=== PATIENT | male | born 1970 | race Caucasian/White ===

== ENCOUNTER 2017-05-25 13:39 | Inpatient (IN) | payer OTHER ==
[~2017-05-25] VITALS: Ht 180.3 cm; Wt 96.0 kg
[2017-06-07 13:30] VITALS: BP 140/88
[2017-06-07] MEDS ORDERED: LEXAPRO5 MG ORAL (15:06)
[2017-06-07] MEDS ORDERED: CRESTOR10 M1 ORAL (15:06)
[2017-06-07] MEDS ORDERED: ODEFSEY TABLET1 EACH PO (15:06)
[2017-06-07] MEDS ORDERED: PHENTERMINE H37.5 M1 PO (15:06)
[2017-06-07 16:42] LABS: BASOPHILS % (AUTO) 0.8 % (0.0-2.0); EOSINOPHILS % (AUTO) 1.6 % (0.0-3.0); HEMATOCRIT 45.4 % (42.0-52.0); HEMOGLOBIN 16.3 G/DL (14.2-18.0); LYMPHOCYTES % (AUTO) 28.1 % (20.0-45.0); MEAN CORPUSCULAR VOLUME 93 FL (80-99); MONOCYTES % (AUTO) 8.7 % (1.0-10.0); NEUTROPHILS % (AUTO) 60.8 % (45.0-75.0); PLATELET COUNT 248 K/UL (150-450); RED BLOOD COUNT 4.87 M/UL (4.70-6.10); RED CELL DISTRIBUTION WIDTH 11.2 % (11.6-14.8); WHITE BLOOD COUNT 6.5 K/UL (4.8-10.8)
--- NOTE | 2017-06-07 17:44 | History and Physical ---
History of Present Illness General Date patient seen: Jun 07, 2017 Time patient seen: 14:30 Reason for Hospitalization: particpation in [id number] clinical trial Present Illness HPI 46 yo male in good health with well-controlled HIV infection is electively admitted for above clinical trial. He has no complaints at the moment. Allergies: Coded Allergies: PENICILLIN G (Verified Allergy, Mild, rash, 06/07/17) Medication History Scheduled Escitalopram Oxalate (Lexapro), 15 MG ORAL DAILY, (Reported) Rosuvastatin Calcium (Crestor), 5 MG ORAL DAILY, (Reported) Miscellaneous Medications Emtricitab/Rilpiviri/Tenof Ala (Odefsey Tablet), 1 EACH PO, (Reported) Phentermine Hcl (Phentermine Hcl), 37.5 MG PO, (Reported) Patient History History Provided By: Patient Healthcare decision maker Self Resuscitation status Full Code Advanced Directive on File No Patient History Narrative Patient diagnosed with HIV in 1991, started therapy c. 1996; has never had virologic failure. He has no history of OIs or KS. He has had some lipodystrophy. He has hyperlipidemia and was diagnosed with fatty liver in 2011 , and has a long history of depression. He has not had surgery and his family history is non-contributory Review of Systems Constitutional: Reports: no symptoms Respiratory: Denies: cough, shortness of breath Cardiovascular: Denies: chest pain Gastrointestinal: Denies: diarrhea, nausea, vomiting Genitourinary: Denies: dysuria All Other Systems: negative except mentioned in HPI Physical Exam General Appearance: WD/WN, no apparent distress HEENT: normocephalic, atraumatic Neck: supple Respiratory/Chest: lungs clear Cardiovascular/Chest: normal rate, regular rhythm Abdomen: non tender, soft, no organomegaly Extremities: no edema Neurologic: vendor analyst II-XII grossly normal, responsive, normal mood/affect Laboratory Tests Test 06/07/17 13:15 White Blood Count 6.5 K/UL (4.8-10.8) Red Blood Count 4.87 M/UL (4.70-6.10) Hemoglobin 16.3 G/DL (14.2-18.0) Hematocrit 45.4 % (42.0-52.0) Mean Corpuscular Volume 93 FL (80-99) Mean Corpuscular Hemoglobin 33.5 PG (27.0-31.0) H Mean Corpuscular Hemoglobin Concent 35.9 G/DL (32.0-36.0) Red Cell Distribution Width 11.2 % (11.6-14.8) L Platelet Count 248 K/UL (150-450) Mean Platelet Volume 5.9 FL (6.5-10.1) L Neutrophils (%) (Auto) 60.8 % (45.0-75.0) Lymphocytes (%) (Auto) 28.1 % (20.0-45.0) Monocytes (%) (Auto) 8.7 % (1.0-10.0) Eosinophils (%) (Auto) 1.6 % (0.0-3.0) Basophils (%) (Auto) 0.8 % (0.0-2.0) Height (Feet): 5 Height (Inches): 11.00 Weight (Pounds): 200 Medications Current Medications Medications (Trade) Dose Ordered Sig/Danny Route PRN Reason Start Time Stop Time Status Last Admin Dose Admin Patient Own Medication (Patient's Own Med) 1 ea DAILY ORAL 06/08/17 12:00 07/08/17 11:59 UNV Patient Own Medication (Patient's Own Med) 1 ea DAILY ORAL 06/08/17 12:00 07/08/17 11:59 UNV Patient Own Medication (Patient's Own Med) 1 ea DAILY ORAL 06/08/17 12:00 07/08/17 11:59 UNV Patient Own Medication (Patient's Own Med) 1.5 ea DAILY ORAL 06/08/17 12:00 07/08/17 11:59 UNV Assessment/Plan Status: stable Assessment/Plan A: Admission for participation in [id number] trial HIV, well controlled hyperlipidemia, on medication depression, currently stable P: Pt has given informed consent to his participation in this phase Ib trial. All questions offered were addressed. We will proceed per protocol. Dictated #[id number] RAHEEL COTA Jun 07, 2017 17:44
--- NOTE | 2017-06-08 01:00 | History and Physical Report ---
DATE OF ADMISSION: 06/07/2017 REASON FOR ADMISSION: The patient is admitted for participation in clinical trial of [place] [id number]. HISTORY OF PRESENT ILLNESS: The patient is a 46-year-old man followed by my associate, Dr. Jeff Guajardo, for routine outpatient care and the patient has history of HIV infection, which was diagnosed in 1991. He was started on ant-retroviral therapy in 1998 and has been on a variety of antiretroviral therapies, most recently on Odefsey. The patient has never changed regimens due to drug failure, but has switched for tolerability and convenience reasons. He has been on Odefsey for many months with excellent virologic control. He is admitted at this time to participate in the above clinical trial. PAST MEDICAL HISTORY: The patient has generally been healthy his whole life. He has diagnosis of depression with a suicide attempt in high school. He has hyperlipidemia, mild obesity, presumably HIV-related lipodystrophy, and also has history of ASCUS on Pap smears. There is diagnosis of fatty liver in 2011. PAST SURGICAL HISTORY: He denies prior surgery. MEDICATIONS: As an outpatient included Odefsey one tablet daily, phentermine 30 mg one daily, Lexapro 20 mg one daily, and Crestor 5 mg one daily. FAMILY HISTORY: His mother has unspecified arrhythmia. SOCIAL HISTORY: The patient does not smoke and drinks very rarely. There is no history of recreational drug use. There is no current recreational drug use. No recent travel. The patient has a partner who lives in [place]. There is no recent travel out of our community hospital. REVIEW OF SYSTEMS: He denies cough, shortness of breath. Denies fevers. Denies chest pain. Denies nausea, vomiting, or diarrhea. He has not had dysuria. PHYSICAL EXAMINATION: GENERAL: Revealed a well-nourished, well-developed male, in no acute distress. He is alert and oriented x4. VITAL SIGNS: His pulse was 76, his blood pressure was 128/85, his temperature was 98.0 degrees. His weight was 211.4 pounds. His height was 71 inches. HEENT: Normocephalic and atraumatic. Pupils equal, round, and reactive. Oropharynx is without thrush. NECK: Supple. No cervical or axillary adenopathy. LUNGS: Clear to auscultation. HEART: Regular rhythm without murmurs or gallops. ABDOMEN: Soft and nontender. There is no hepatosplenomegaly. EXTREMITIES: Without cyanosis, clubbing, or edema. NEUROLOGIC: Grossly nonfocal. No motor or sensory deficit. LABORATORY DATA: Pending. IMPRESSION: 1. Admission for participation in clinical study, [id number]. 2. HIV infection, well controlled. 3. Hypercholesterolemia. 4. Lipodystrophy. 5. Mild depression. DISCUSSION: The patient is a very pleasant 46-year-old man admitted for participation in clinical trial of a new anti-HIV agent sponsored by [employer]. This is a phase Ib clinical study. We reviewed the risks and benefits with the patient in detail and the patient wishes to proceed with the study. PLAN: 1. Followup per protocol. 2. We will plan on dosing in the morning and then the patient will spend the following 2 nights in the hospital under observation. Jeff Kearney M.D. DR: DIMAS JOB#: [id number] CC: Jeff Kearney M.D.; [address] [place] [address], [address]; [place] [address].; Fax#: [phone] [facility]
[2017-06-08] MEDS ORDERED: Investigational Drug 150 MG in NS 48 ML IV SCH (06:30)
[2017-06-08 12:00] VITALS: BP 125/76
[2017-06-08] MEDS: ROSUVASTATIN 5 MG ORAL SCH (12:07)
[2017-06-08] MEDS: PHENTERMINE 37.5 MG ORAL SCH (12:07)
[2017-06-08 15:42] VITALS: BP 111/74
--- NOTE | 2017-06-08 20:42 | General Progress Note ---
Assessment/Plan Status: stable Status Narrative Pt has tolerated administration of investigational agent (or placebo) well. Assessment/Plan A: HIV infection, stable Other medical problems stable P: Continue to observe as per [id number] protocol. Subjective Date patient seen: Jun 07, 2017 Time patient seen: 15:00 Constitutional: Reports: no symptoms HEENT: Reports: no symptoms Cardiovascular: Denies: chest pain, edema, lightheadedness Respiratory: Denies: cough, shortness of breath Gastrointestinal/Abdominal: Denies: diarrhea, nausea, vomiting Genitourinary: Denies: burning, frequency, hematuria Neurologic/Psychiatric: Denies: headache, paresthesia Endocrine: Reports: no symptoms Hematologic/Lymphatic: Reports: no symptoms Allergies: Coded Allergies: PENICILLIN G (Verified Allergy, Mild, rash, 06/07/17) All Systems: reviewed and negative except above Subjective Study drug was administered to patient c. 0630 without incident. I was present during this, and I saw him again this afternoon. He is doing well and has no complaints. Objective Labs Test 06/07/17 13:15 White Blood Count 6.5 K/UL (4.8-10.8) Red Blood Count 4.87 M/UL (4.70-6.10) Hemoglobin 16.3 G/DL (14.2-18.0) Hematocrit 45.4 % (42.0-52.0) Mean Corpuscular Volume 93 FL (80-99) Mean Corpuscular Hemoglobin 33.5 PG (27.0-31.0) Mean Corpuscular Hemoglobin Concent 35.9 G/DL (32.0-36.0) Red Cell Distribution Width 11.2 % (11.6-14.8) Platelet Count 248 K/UL (150-450) Mean Platelet Volume 5.9 FL (6.5-10.1) Neutrophils (%) (Auto) 60.8 % (45.0-75.0) Lymphocytes (%) (Auto) 28.1 % (20.0-45.0) Monocytes (%) (Auto) 8.7 % (1.0-10.0) Eosinophils (%) (Auto) 1.6 % (0.0-3.0) Basophils (%) (Auto) 0.8 % (0.0-2.0) Last 24 Hour Vital Signs Date Time Temp Pulse Resp B/P (MAP) Pulse Ox O2 Delivery O2 Flow Rate FiO2 06/08/17 15:42 97.7 72 20 111/74 94 97.7 06/08/17 12:00 97.5 73 20 125/76 99 97.5 Intake and Output 06/07/17 06/08/17 19:00 07:00 Intake Total 500 ml 480 ml Balance 500 ml 480 ml Intake Oral 500 ml 480 ml # Voids 1 1 Labs Test 06/07/17 13:15 White Blood Count 6.5 K/UL (4.8-10.8) Red Blood Count 4.87 M/UL (4.70-6.10) Hemoglobin 16.3 G/DL (14.2-18.0) Hematocrit 45.4 % (42.0-52.0) Mean Corpuscular Volume 93 FL (80-99) Mean Corpuscular Hemoglobin 33.5 PG (27.0-31.0) Mean Corpuscular Hemoglobin Concent 35.9 G/DL (32.0-36.0) Red Cell Distribution Width 11.2 % (11.6-14.8) Platelet Count 248 K/UL (150-450) Mean Platelet Volume 5.9 FL (6.5-10.1) Neutrophils (%) (Auto) 60.8 % (45.0-75.0) Lymphocytes (%) (Auto) 28.1 % (20.0-45.0) Monocytes (%) (Auto) 8.7 % (1.0-10.0) Eosinophils (%) (Auto) 1.6 % (0.0-3.0) Basophils (%) (Auto) 0.8 % (0.0-2.0) Height (Feet): 5 Height (Inches): 11.00 Weight (Pounds): 200 General Appearance: WD/WN, no apparent distress Neck: supple Cardiovascular: normal rate, regular rhythm Respiratory/Chest: lungs clear Abdomen: non tender, soft Edema: no edema noted Arm (L), no edema noted Arm (R), no edema noted Leg (L), no edema noted Leg (R), no edema noted Pedal (L), no edema noted Pedal (R), no edema noted Generalized Neurologic: no motor/sensory deficits Skin: rash - none RAHEEL COTA Jun 08, 2017 20:42
[2017-06-09 00:30] VITALS: BP 126/88
[2017-06-09 07:36] LABS: BASOPHILS % (AUTO) 0.6 % (0.0-2.0); EOSINOPHILS % (AUTO) 1.8 % (0.0-3.0); HEMATOCRIT 39.9 % (42.0-52.0); HEMOGLOBIN 14.5 G/DL (14.2-18.0); LYMPHOCYTES % (AUTO) 29.3 % (20.0-45.0); MEAN CORPUSCULAR VOLUME 91 FL (80-99); MONOCYTES % (AUTO) 8.8 % (1.0-10.0); NEUTROPHILS % (AUTO) 59.6 % (45.0-75.0); PLATELET COUNT 225 K/UL (150-450); RED BLOOD COUNT 4.38 M/UL (4.70-6.10); RED CELL DISTRIBUTION WIDTH 10.5 % (11.6-14.8); WHITE BLOOD COUNT 6.6 K/UL (4.8-10.8)
[2017-06-09 08:00] VITALS: BP 128/81
[2017-06-09] MEDS: PHENTERMINE 37.5 MG ORAL SCH (11:56)
[2017-06-09] MEDS: ROSUVASTATIN 5 MG ORAL SCH (11:56)
[2017-06-09 12:00] VITALS: BP 129/87
--- NOTE | 2017-06-09 15:48 | General Progress Note ---
Assessment/Plan Status: stable Status Narrative Patient continues in good condition. Labs Test 06/07/17 13:15 06/09/17 06:36 White Blood Count 6.5 K/UL (4.8-10.8) 6.6 K/UL (4.8-10.8) Red Blood Count 4.87 M/UL (4.70-6.10) 4.38 M/UL (4.70-6.10) Hemoglobin 16.3 G/DL (14.2-18.0) 14.5 G/DL (14.2-18.0) Hematocrit 45.4 % (42.0-52.0) 39.9 % (42.0-52.0) Mean Corpuscular Volume 93 FL (80-99) 91 FL (80-99) Mean Corpuscular Hemoglobin 33.5 PG (27.0-31.0) 33.1 PG (27.0-31.0) Mean Corpuscular Hemoglobin Concent 35.9 G/DL (32.0-36.0) 36.3 G/DL (32.0-36.0) Red Cell Distribution Width 11.2 % (11.6-14.8) 10.5 % (11.6-14.8) Platelet Count 248 K/UL (150-450) 225 K/UL (150-450) Mean Platelet Volume 5.9 FL (6.5-10.1) 6.6 FL (6.5-10.1) Neutrophils (%) (Auto) 60.8 % (45.0-75.0) 59.6 % (45.0-75.0) Lymphocytes (%) (Auto) 28.1 % (20.0-45.0) 29.3 % (20.0-45.0) Monocytes (%) (Auto) 8.7 % (1.0-10.0) 8.8 % (1.0-10.0) Eosinophils (%) (Auto) 1.6 % (0.0-3.0) 1.8 % (0.0-3.0) Basophils (%) (Auto) 0.8 % (0.0-2.0) 0.6 % (0.0-2.0) Assessment/Plan A: HIV infection, stable Other medical problems are stable P: Continue to observe as per [id number] protocol. We will expect discharge in the morning. Subjective Date patient seen: Jun 09, 2017 Time patient seen: 12:00 Constitutional: Denies: chills, fever, malaise Cardiovascular: Denies: chest pain, edema, lightheadedness, palpitations Respiratory: Denies: cough, shortness of breath, wheezing Gastrointestinal/Abdominal: Denies: abdominal pain, diarrhea, nausea, vomiting Genitourinary: Denies: burning, frequency Neurologic/Psychiatric: Reports: no symptoms Endocrine: Reports: no symptoms Allergies: Coded Allergies: PENICILLIN G (Verified Allergy, Mild, rash, 06/07/17) All Systems: reviewed and negative except above Subjective Patient is doing well today, has no new complaints. Objective Last 24 Hour Vital Signs Date Time Temp Pulse Resp B/P (MAP) Pulse Ox O2 Delivery O2 Flow Rate FiO2 06/09/17 12:00 97.3 71 20 129/87 95 97.3 06/09/17 08:00 97.2 81 18 128/81 95 97.2 06/09/17 00:30 97.5 79 20 126/88 96 Room Air 97.5 Intake and Output 06/08/17 06/09/17 19:00 07:00 Intake Total 660 ml 500 ml Balance 660 ml 500 ml Intake Oral 660 ml 500 ml # Voids 1 2 Laboratory Tests 06/09/17 06:36: White Blood Count 6.6, Red Blood Count 4.38L, Hemoglobin 14.5, Hematocrit 39.9L , Mean Corpuscular Volume 91, Mean Corpuscular Hemoglobin 33.1H, Mean Corpuscular Hemoglobin Concent 36.3H, Red Cell Distribution Width 10.5L, Platelet Count 225, Mean Platelet Volume 6.6, Neutrophils (%) (Auto) 59.6, Lymphocytes (%) (Auto) 29.3, Monocytes (%) (Auto) 8.8, Eosinophils (%) (Auto) 1.8, Basophils (%) (Auto) 0.6 Height (Feet): 5 Height (Inches): 11.00 Weight (Pounds): 211 General Appearance: WD/WN, no apparent distress EENT: PERRL/EOMI, pharynx normal Neck: supple Cardiovascular: normal rate, regular rhythm Respiratory/Chest: lungs clear Abdomen: non tender, soft Edema: no edema noted Arm (L), no edema noted Arm (R), no edema noted Leg (L), no edema noted Leg (R), no edema noted Pedal (L), no edema noted Pedal (R), no edema noted Generalized Neurologic: no motor/sensory deficits RAHEEL COTA Jun 09, 2017 15:48
[2017-06-09 16:00] VITALS: BP 124/83
[2017-06-09 20:00] VITALS: BP 143/90
[2017-06-10 07:39] LABS: BASOPHILS % (AUTO) 0.8 % (0.0-2.0); EOSINOPHILS % (AUTO) 2.1 % (0.0-3.0); HEMATOCRIT 43.1 % (42.0-52.0); HEMOGLOBIN 15.2 G/DL (14.2-18.0); LYMPHOCYTES % (AUTO) 35.1 % (20.0-45.0); MEAN CORPUSCULAR VOLUME 93 FL (80-99); PLATELET COUNT 223 K/UL (150-450); RED BLOOD COUNT 4.63 M/UL (4.70-6.10); RED CELL DISTRIBUTION WIDTH 11.4 % (11.6-14.8); WHITE BLOOD COUNT 6.8 K/UL (4.8-10.8)
[2017-06-10] MEDS ORDERED: Patient's Own Med ORAL (07:51)
[2017-06-10 08:00] VITALS: BP 121/75
--- NOTE | 2017-06-10 08:11 | Discharge Summary ---
Discharge Summary Hospital Course Date of Admission Jun 07, 2017 at 14:00 Date of Discharge Jun 10, 2017 at 08:30 Admitting Diagnosis 1) Participation in clinical trial 2) HIV infection 3) hyperlipidemia 4) lipodystrophy 5) mild depression Reason for Hospitalization: Participation in [id number] HPI Jordan Bradford is a 46 year old male who was admitted on Jun 07, 2017 at 14:00 for Infection Consultations None. Procedures None. Hospital Course Pt tolerated infusion of study drug without any adverse events noted. Discharge Medications New Medications: [Patient's Own Med] () 1 EA EA 1.5 EA ORAL DAILY@1200 [Patient's Own Med] () 1 EA EA 1 EA ORAL DAILY@1200 [Patient's Own Med] () 1 EA EA 1 EA ORAL DAILY@1200 [Patient's Own Med] () 1 EA EA 1 EA ORAL DAILY@1200 Discharge Condition Upon Discharge: stable Discharge Disposition Patient was discharged to Home (01) Discharge Diagnoses: (1) Research study patient RAHEEL COTA Jun 10, 2017 08:11
--- NOTE | 2017-06-11 05:30 | Discharge Summary ---
DATE OF ADMISSION: 06/07/2017 DATE OF DISCHARGE: 06/10/2017 DISCHARGE DIAGNOSES: 1. Participation in clinical trial. 2. Human immunodeficiency virus infection, well controlled. 3. Hypercholesterolemia. 4. Lipodystrophy. 5. Mild depression. HISTORY OF PRESENT ILLNESS AND HOSPITAL COURSE: The patient was electively admitted on 06/07/2017 for participation in [employer] clinical trial [id number]. The patient was given an infusion of the experimental agent (or placebo) on the second hospital day. This was as per the protocol. The patient tolerated this well. There were no adverse events noted. DISCHARGE MEDICATIONS: Phentermine 30 mg daily, Lexapro 20 mg daily, Crestor 5 mg daily, and Odefsey 1 tablet daily. DISCHARGE CONDITION: Good. The patient's discharge disposition was to home with followup in the clinic. Jeff Kearney M.D. DR: DIMAS JOB#: [id number] CC: OMAR
== END 2017-06-10 08:23 | disposition home or self-care (01) | DRG 951 ==
LOC: 3E 06-07 14:00
DX: Z00.6 Encounter for examination for normal comparison and control in clinical research program (principal); B20 Human immunodeficiency virus [HIV] disease; E78.5 Hyperlipidemia, unspecified; E88.1 Lipodystrophy, not elsewhere classified; F32.9 Major depressive disorder, single episode, unspecified; Z88.0 Allergy status to penicillin
CPT/HCPCS: 36415; 85025

== ENCOUNTER 2018-06-15 10:24 | Day surgery (SDC) | payer BC ==
[~2018-06-15] VITALS: Ht 177.8 cm; Wt 90.7 kg
[2018-06-15] VITALS (9 sets, daily range): BP systolic 79–129; BP diastolic 74–84
[~2018-06-15 10:24] MED LIST: CRESTOR10 M1 ORAL; LEXAPRO5 MG ORAL; LR 1000ml 1,000 ML IVLG SCH; ODEFSEY TABLET1 EACH PO; PHENTERMINE H37.5 M1 PO; Patient's Own Med ORAL
--- NOTE | 2018-06-15 10:50 | NUR ---
IV LR WAS STARTED BY DESIREE RAMON RN. NO S/S OF INFILTRATION.
[2018-06-15] MEDS ORDERED: LR 1000ml 1,000 ML IVLG SCH (12:34)
--- NOTE | 2018-06-15 12:34 | Anethesia Preoperative Eval ---
Anesthesia Pre-op PMH/ROS General Date of Evaluation: June 15, 2018 Anesthesiologist: Karthik ASA Score: ASA 2 Mallampati Score Class I : Soft palate, uvula, fauces, pillars visible Class II: Soft palate, uvula, fauces visible Class III: Soft palate, base of uvula visible Class IV: Only hard plate visible Mallampati Classification: Class III Surgeon: Isma Diagnosis: Screening Surgical Procedure: Colonoscopy Anesthesia History: none Family History: no anesthesia problems Allergies: Coded Allergies: PENICILLIN G (Verified Allergy, Intermediate, rash, 06/15/18) Medications: see eMAR Patient NPO?: Yes NPO Date: June 15, 2018 NPO Time: 00:00 Past Medical History Cardiovascular: Reports: other - HLD; Denies: HTN, CAD, CA, valve dz, arrhythmia Pulmonary: Denies: asthma, COPD, BUNNY, other Gastrointestinal/Genitourinary: Denies: GERD, CRI, ESRD, other Neurologic/Psychiatric: Reports: depression/anxiety; Denies: dementia, CVA, TIA, other Endocrine: Denies: DM, hypothyroidism, steroids, other HEENT: Denies: cataract (L), cataract (R), glaucoma, COWLITZ (L), COWLITZ (R), other Hematology/Immune: Reports: anemia - chronic, other - HIV; Denies: DVT, bleeding disorder Musculoskeletal/Integumentary: Denies: OA, RA, DJD, DDD, edema, other PSxH Narrative: Lasik Anesthesia Pre-op Phys. Exam Physician Exam Last Vital Signs Date Time Temp Pulse Resp B/P (MAP) Pulse Ox O2 Delivery O2 Flow Rate FiO2 06/15/18 11:03 Room Air 06/15/18 10:57 96.9 59 20 129/84 97 Constitutional: NAD Cardiovascular: RRR Respiratory: CTA Airway Exam Mallampati Score: Class III MO: limited ROM: limited Anesthesia Pre-op A/P Labs see chart Studies Pre-op Studies: EKG - sr Risk Assessment & Plan Assessment: ASA II Plan: MAC Status Change Before Surgery: No Pre-Antibiotics Drug: N/A Carmina Ayala MD June 15, 2018 12:34
[2018-06-15] MEDS ORDERED: DiphenhydrAMINE 50mg/ml Inj IVP PRN (12:45)
[2018-06-15] MEDS ORDERED: Propofol 200mg/20ml IV ONE (14:00)
[2018-06-15] MEDS ORDERED: Lidocaine 1% MPF 10mg/ml 5ml ONE (14:00)
--- NOTE | 2018-06-15 14:41 | Immediate Post-Op Evaluation ---
Immediate Post-Op Evalulation Immediate Post-Op Evalulation Procedure: colonoscopy Date of Evaluation: June 15, 2018 Time of Evaluation: 14:44 IV Fluids: 300 Blood Products: 0 Estimated Blood Loss: 0 Urinary Output: 0 Blood Pressure Systolic: 122 Blood Pressure Diastolic: 73 Pulse Rate: 58 Respiratory Rate: 16 O2 Sat by Pulse Oximetry: 100 Temperature (Fahrenheit): 97.2 Pain Score (1-10): 0 Nausea: No Vomiting: No Complications 0 Patient Status: awake, reacts, patent, none Hydration Status: adequate Drug: N/A Carmina Ayala MD June 15, 2018 14:41
--- NOTE | 2018-06-15 14:43 | Endoscopy Procedure Note ---
Endoscopy Procedure Note General Indication for Procedure: rectal bleeding Procedures Performed: colonoscopy Operative Findings/Diagnosis: rectal ulcerations, large hemorrhoids Specimen: yes Pt Tolerated Procedure Well: Yes Estimated Blood Loss: minimal Anesthesia Anesthesiologist: Carmina Angeles MD Anesthesia: moderate sedation Medications Medication Given: see anesthesia record Inserted Devices Implant(s) used?: No Quality Quality of Bowel Preparation: Excellent Did scope reach the cecum?: Yes Was there any complications?: No GI Core Measures 50 yrs or older w/o bx or poly: No 10yrs. F/U not recommended: No Marilu Ashby MD June 15, 2018 14:43
--- NOTE | 2018-06-15 14:45 | 48 Hour Post Anesthesia Eval ---
Post Anesthesia Evaluation Procedure: colonoscopy Date of Evaluation: June 15, 2018 Airway: patent Nausea: No Vomiting: No Pain Intensity: 0 Hydration Status: adequate Cardiopulmonary Status: at baseline Mental Status/LOC: patient returned to baseline Post-Anesthesia Complications: 0 Follow-up care needed: ready to discharge Carmina Ayala MD June 15, 2018 14:44
--- NOTE | 2018-06-15 21:30 | Operative Note - Dictated ---
DATE OF OPERATION: 06/15/2018 PRE-PROCEDURE DIAGNOSIS: Rectal bleeding. POSTPROCEDURE DIAGNOSES: Healed rectal ulcerations, also large ulcerated prolapsing internal hemorrhoids. PROCEDURE: Colonoscopy with cold forceps biopsy. SURGEON: Marilu Ashby M.D. ANESTHESIOLOGIST: Carmina Angeles M.D. ANESTHESIA: Propofol sedation. INDICATION FOR PROCEDURE: The patient is a 47-year-old male, who was sent to my office by his physician, Dr. Raheel Guajardo for colorectal surgery evaluation for abnormal Pap smear back in May 2016. The patient was advised to undergo a high-resolution anoscopy with biopsy at that time, but did not show up for his surgery. The patient was sent back to my office for excessive rectal bleeding due to large hemorrhoids with a drop in his hemoglobin. It was advised at that time to undergo colonoscopy along with a hemorrhoidectomy. The patient refused to have surgery and decided to just proceed with colonoscopy at this time. DESCRIPTION OF PROCEDURE: Upon consent of the patient, the patient brought to the operative procedure room, placed in left lateral decubitus position. Once adequate sedation was established with propofol drip, digital rectal exam was performed, which showed some large prolapsing internal hemorrhoids. The Olympus colonoscope was advanced through the anus into the rectum. The descending colon, splenic flexure, traverse colon, hepatic flexure, and ascending colon were visualized. The cecum was easily reached. The ileocecal valve and appendiceal orifice were identified. The patient's prep was noted to be good. The terminal ileum was intubated, was noted to be normal. The colonoscope was slowly withdrawn. There was noted to be 2 small healed rectal ulcerations, which were biopsied and sent off the field as specimens. There was noted to be no polyps. Upon reaching the rectum, the colonoscope was retroflexed and noted to be large prolapsing internal hemorrhoids, which were ulcerated. The scope was straightened, air was evacuated from the rectum, the colonoscope was removed. The patient was awakened from anesthesia and brought to postanesthesia recovery room in stable condition. There were no complications. IMPRESSION: Rectal ulcerations, large ulcerated prolapsing internal hemorrhoids. PLAN: Repeat colonoscopy in 5 years, continue high-fiber diet, yearly followup, advised hemorrhoidal treatment. Marilu Ashby M.D. DR: TAMMY JOB#: [id number] CC: Marilu Ashby M.D.; Fax#: [phone] RAHEEL GUAJARDO M.D. ; FAX#: [phone] Mel Newell M.D.
== END 2018-06-15 15:50 | disposition home or self-care (01) ==
LOC: SUR 10:24
DX: K64.8 Other hemorrhoids (principal); K62.6 Ulcer of anus and rectum; Z88.0 Allergy status to penicillin; E78.5 Hyperlipidemia, unspecified; F32.9 Major depressive disorder, single episode, unspecified; F41.9 Anxiety disorder, unspecified; B20 Human immunodeficiency virus [HIV] disease
CPT/HCPCS: 45380; J2704; 94003; 94150